=== PATIENT | male | born 1955 | race Caucasian/White ===

== ENCOUNTER → 2018-04-01 09:29 | Outpatient (CLI) | payer OTHER, SELFPAY ==
--- NOTE | 2018-04-01 10:52 | PM.TREADMILL ---
Cardiac Stress Test Report Referral & Results Date Patient Seen: 04/01/18 Requesting provider: Dhara Frost Indication: Coronary disease Rest ECG: Unremarkable Procedure Note: Today following both written and verbal informed consent, the patient was exercised according to a standard Zackary protocol. The patient exercised for a total of 6 min 17 sec achieving a maximum heart rate of 128. Patient's maximum systolic blood pressure was 140. This was an estimated 7.0 MET's. Patient was hypotensive to start, had evidence of orthostasis with blood pressure falling from 03/11 systolic to 80 systolic upon standing with heart rate increasing from 60-90. Patient was asymptomatic. With exercise there are no ST segment changes Occasional multifocal PVCs were seen including a run of 4 and a more prolonged run of ventricular bigeminy in recovery Patient failed to meet heart rate targets Functional aerobic impairment rated 20% on the sedentary scale Patient had significant dyspnea and coughing immediately post exercise that slowly resolved (likely secondary to his active cigarette smoking) Impression: Orthostatic hypotension No evidence of ischemia Ventricular dysrhythmia as above Blunted heart rate response to exercise Clinical evidence of COPD Limited exercise capacity Clinical correlation suggested. I did suggest patient check-in with his physician regarding his antihypertensives given his orthostasis today. Please note: Actual ECG tracings can be found in the PACS system.
== END ==
PROVIDERS: PCP Family Medicine; Visit Provider Family Medicine
DX: I25.10 Atherosclerotic heart disease of native coronary artery without angina pectoris (principal); I95.1 Orthostatic hypotension; I47.0 Re-entry ventricular arrhythmia
CPT/HCPCS: 93016; 93017; 93018

== ENCOUNTER → 2024-07-11 09:54 | Outpatient (CLI) | payer MEDICARE, OTHER, SELFPAY ==
--- NOTE | 2024-07-11 09:57 | DI.CT.S_ITS ---
PROCEDURE: CT CHEST W CON INDICATIONS: CHONDROSARCOMA,METASTATIC SARCOMA TECHNIQUE: After the administration of intravenous contrast, 5 mm thick sections acquired from the pulmonary apices to the posterior costophrenic angles. 1 mm axial lung, 5 mm thick coronal and sagittal reformats and 7 mm axial MIP were acquired. For radiation dose reduction, the following was used: automated exposure control, adjustment of mA and/or kV according to patient size. COMPARISON: Outside Facility, CT, CT CHEST W CON, 05/10/2024, 14:48. FINDINGS: Image quality: Diagnostic. Lower Neck: No enlarged lymph nodes. Thyroid: No thyroid nodules which require sonographic follow up, per consensus guidelines. Axillae: No enlarged lymph nodes. Chest Wall: Left chest wall mass measures 20 x 17.7 x 15 cm, previously 17.9 x 14.8 x 14.0 cm. The mass extends into the left hemithorax between the 2nd through 4th ribs, with contact to the mediastinum but no overt evidence of direct invasion. Bones: Bony irregularity of the left 3rd and 4th ribs, with periosteal reaction. Lungs and Pleura: Bilateral pulmonary nodules, extensive on the left and a few on the right. Index nodule measures 1.2 cm in the left lower lobe, unchanged from prior (series 3, image 167). Small left pleural effusion . Prior left upper lobectomy. Additional pleural base metastases are present, slightly grown in size. For instance, the 4.2 cm lesion along the left heart border previously measured 3.5 cm (series 4, image 71). Heart: Heart size is normal. No pericardial effusion. Thoracic Vessels: The aorta and pulmonary arteries demonstrate normal size. Mediastinum and [place]: No enlarged lymph nodes. Esophagus: No wall thickening. No hiatal hernia. Upper Abdomen: Stable round gastrohepatic lymph node measuring 9 mm short axis (series 4, image 95). IMPRESSION: Slight interval growth of the invasive left chest wall mass, with invasion of the left hemithorax. This measures 20 x 17.7 x 15 cm, previously 17.9 x 14.8 x 14 cm. Contact with the mediastinum, without overt evidence of invasion. Slight interval growth of the pleural base metastases in the left lung. Similar size of the pulmonary nodules. Prominent gastrohepatic lymph node, indeterminate. Attention on follow-up. Bony irregularity of the left 3rd and 4th ribs, similar to prior, with periosteal reaction present. Dictated by: Mamadou Bonilla M.D. on 07/11/2024 at 15:48 Approved by: Mamadou Bonilla M.D. on 07/11/2024 at 15:55
[2024-07-11 10:24] LABS: Estimated Glomerular Filt Rate > 60 mL/min (>60)
== END ==
PROVIDERS: PCP Family Medicine; Referring Provider Physician Assistant; Visit Provider Physician Assistant
DX: C41.9 Malignant neoplasm of bone and articular cartilage, unspecified (principal); C49.9 Malignant neoplasm of connective and soft tissue, unspecified; C78.2 Secondary malignant neoplasm of pleura; R91.8 Other nonspecific abnormal finding of lung field; J90 Pleural effusion, not elsewhere classified
CPT/HCPCS: 71260; 82565; Q9967

== ENCOUNTER → 2024-07-11 09:58 | Outpatient (CLI) | payer MEDICARE, OTHER, SELFPAY ==
--- NOTE | 2024-07-11 10:02 | DI.MRI.S_ITS ---
PROCEDURE: MR CHEST WO/W CON INDICATIONS: Sarcoma - left chest TECHNIQUE: Axial 2-D FLASH in- and [id number], axial breath-hold T2 FSE, axial STIR FSE. Optional contrast may be given, followed by axial 2-D FLASH with fat saturation acquired over the lesion of concern. COMPARISON: Outside Facility, CT, CT ANGIO CHEST PE PROTOCOL, 10/12/2023, 16:54. Outside Facility, CT, CT CHEST W CON, 03/16/2024, 15:10. Outside Facility, CT, CT CHEST W CON, 12/23/2023, 14:17. [facility], CT, CT CHEST W CON, 07/11/2024, 10:39. FINDINGS: Image quality: Excellent. Region of interest: Retropectoral soft tissue mass in the left chest wall, measuring 20 x 17 cm, increased from prior. Soft tissue edema surrounds mass. The mass contains T1 and T2 hyperintense and intermediate loculations . Additional 2 hyperintense mass along the medial margin of the glenoid measuring 7.0 x 7.6 cm. Pulmonary findings better characterized on same day chest CT. Bones: Abnormal signal intensity within the left anterior 3rd and 4th ribs . IMPRESSION: Growing left retropectoral mass with left hemithorax invasion. Chest findings are better characterized on same day CT . Additional soft tissue mass in the medial margins of the right glenoid measuring 7.0 x 7.6 cm, seen in retrospect on 10/12/2023 measuring 5.1 x 5.4 cm . Abnormal T2 hyperintense signal within the left 3rd and 4th ribs, consistent with bony involvement. Dictated by: Mamadou Bonilla M.D. on 07/11/2024 at 15:56 Approved by: Mamadou Bonilla M.D. on 07/11/2024 at 16:01
== END ==
LOC: MRI 09:59
PROVIDERS: PCP Family Medicine; Referring Provider Physician Assistant; Visit Provider Physician Assistant
DX: C41.9 Malignant neoplasm of bone and articular cartilage, unspecified (principal); C49.9 Malignant neoplasm of connective and soft tissue, unspecified; C78.2 Secondary malignant neoplasm of pleura; R91.8 Other nonspecific abnormal finding of lung field; J90 Pleural effusion, not elsewhere classified
CPT/HCPCS: 71260; 71552; 82565; A9579; Q9967